=== PATIENT | male | born 1950 | race Caucasian/White ===

== ENCOUNTER 2020-05-30 15:17 | Emergency (ER) | payer MEDICARE, SELFPAY ==
--- NOTE | ~2020-05-30 | XR_ITS ---
EXAMINATION: XR wrist LT min 3V DATE: 05/30/2020 15:36 INDICATION: Left wrist hyperextension. TECHNIQUE: 4 views of left wrist were obtained. COMPARISON: None. FINDINGS: Bone alignment is normal. No fracture. There is mild osteoarthritis of triscaphe joint. IMPRESSION: 1. Mild osteoarthritis of triscaphe joint. Reviewed, dictated and finalized at location A.
[2020-05-30 15:25] VITALS: BP 135/67; PULSE 86; RESP 16; TEMP 36.9; O2SAT 97
--- NOTE | 2020-05-30 15:44 | ED.UPPEXIN ---
HPI - Extremity Injury (Upper) General Chief Complaint: Extremity Injury, Upper Stated Complaint: lt wrist pain Time Seen by Provider: 05/30/20 15:49 Source: patient and RN notes reviewed Mode of arrival: ambulatory Limitations: no limitations History of Present Illness HPI narrative: 70 year old male who presents to [facility] with complaints of hyper extending his left wrist about one week ago. Patient states that he was holding something over his head and he lost his balance and reached out with the right hand to steady self then hyper extended his left wrist. Patient has strong left radial pulse, nail beds js briskly to his left fingers, denies any tingling or numbness in fingers. MD complaint: injury to: left and wrist Onset (ago): day(s) Other Extremity Injury: Left: wrist Other injuries: none Handedness: right Place: home Severity: mild Severity scale (1-10): 3 Relieving factors: rest Exacerbating factors: movement of extremity Context: other (hyper extension of left wrist) Associated symptoms: denies other symptoms Related Data Allergies Allergy/AdvReac Type Severity Reaction Status Date / Time No Known Allergies Allergy Verified 05/30/20 15:26 Review of Systems Review of Systems: Narrative: CONSTITUTIONAL: Denies fever, chills, or sweats. EYES: Denies visual changes, redness, or discharge. ENT: Denies rhinorrhea, congestion, sore throat, or otalgia. CARDIOVASCULAR: Denies chest pain, palpitations, or edema. RESPIRATORY: Denies cough or dyspnea. GASTROINTESTINAL: Denies abdominal pain, nausea, vomiting, or diarrhea. GENITOURINARY: Denies dysuria or hematuria. SKIN: Denies rash or itching. MUSCULOSKELETAL: Denies back pain, states left wrist pain, or myalgia. NEUROLOGIC: Denies headache, numbness, or weakness. PSYCHIATRIC: Denies anxiety or depression. All systems reviewed & are unremarkable except as noted in HPI and below PMFSH Past Medical History Medical History (Updated 05/31/20 @ 00:00 by Grecia Castro) Insomnia Skin cancer Surgical History Surgical History (Updated 06/02/20 @ 10:35 by Nika Watson NP) H/O arthroscopy of right knee Status post surgical removal of malignant neoplasm of skin Family History Family History Sibling Carcinoma of colon Mother Family history of Alzheimer's disease Father Family history of lymphoma Social History Social History (Updated 05/30/20 @ 16:09 by Nika Watson NP) Smoking status: Never smoker Alcohol intake: current Occupation/Education: retired Gender identity (if verbalized by the patient): Male Comments At time of signature, agree with nursing past medical, surgical, social and family history. There is no relevant family history pertinent to the presenting complaint Exam Narrative: Exam Narrative: GENERAL: Well-appearing, well-nourished, and in no acute distress. HEAD: Normocephalic, atraumatic. EYES: PERRLA and EOMI. ENT: Nares clear, no rhinorrhea or epistaxis. Mucous membranes moist. NECK: Supple. CHEST: Clear to auscultation. No respiratory distress. HEART: Regular rate and rhythm. No murmur heard. Normal peripheral pulses. ABDOMEN: Soft, nontender, nondistended, normal active bowel sounds. EXTREMITIES: Normal range of motion. No edema. Discomfort to his left wrist especially with flexion,no swelling noted, circulation, mobility and sensation intact to left wrist and hand SKIN: Warm, dry, no rash. NEURO: No focal deficits. Alert and oriented x3. Course Vital Signs Vital signs: Vital Signs Temperature 36.9 C 05/30/20 15:25 Pulse Rate 86 05/30/20 15:25 Respiratory Rate 16 05/30/20 15:25 Blood Pressure 135/67 05/30/20 15:25 Pulse Oximetry 97 05/30/20 15:25 Temperature 36.9 C 05/30/20 15:25 Pulse Rate 86 05/30/20 15:25 Respiratory Rate 16 05/30/20 15:25 Blood Pressure 135/67 05/30/20 15:25 Pulse Oximetry 97 05/30/20 15
== END 2020-05-30 16:02 | disposition home or self-care (01) ==
PROVIDERS: Emergency Provider Registered Nurse; PCP Family Medicine
DX: S63.502A Unspecified sprain of left wrist, initial encounter (principal); S66.912A Strain of unspecified muscle, fascia and tendon at wrist and hand level, left hand, initial encounter; X50.9XXA Other and unspecified overexertion or strenuous movements or postures, initial encounter; Z85.828 Personal history of other malignant neoplasm of skin; G47.00 Insomnia, unspecified
CPT/HCPCS: 73110; 99213; G0463

== ENCOUNTER 2022-02-25 11:19 | Outpatient (CLI) | payer MEDICARE, SELFPAY ==
--- NOTE | ~2022-02-25 | US_ITS ---
EXAMINATION: US thyroid DATE: 02/25/2022 12:11 INDICATION: Autoimmune thyroiditis. Hypothyroidism. TECHNIQUE: Multiple ultrasound images of the thyroid were obtained. COMPARISON: None. FINDINGS: The right thyroid lobe measures 5.5 x 2.3 x 2.1 cm. The left thyroid lobe measures 4.6 x 2.2 x 1.8 c m. The thyroid demonstrates diffusely heterogeneous hypoechogenicity. Vascularity is increased. No d iscrete nodule. IMPRESSION: 1. 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 Reviewed, dictated and finalized at location A.
== END 2022-02-25 11:20 | disposition home or self-care (01) ==
PROVIDERS: PCP Internal Medicine; Visit Provider Internal Medicine
DX: E06.3 Autoimmune thyroiditis (principal)
CPT/HCPCS: 76536

== ENCOUNTER 2023-01-26 00:32 | Day surgery (SDC) | payer MEDICARE, SELFPAY ==
[2023-01-19 15:36] VITALS: BMI 25.5
[2023-01-26 10:33] VITALS: BP 133/81; PULSE 90; RESP 18; TEMP 36.3; O2SAT 96
[2023-01-26] MEDS: LACTATED RINGERS 1,000 ML 150 ML IV CONT (10:58)
--- NOTE | 2023-01-26 11:14 | WPDANESEPPF ---
Anes - Initial Pre Proc Eval Procedure: Operation Date: 01/26/23 11:30 Proposed Procedures p Screening Colonoscopy - Thomas More MD Date/Time: 01/26/23 11:14 Surgeon: Thomas More MD Pre Op Diagnosis: neoplasm screening Patient Data Age: 72 Gender: M Height: 1.83 m Weight: 84.8 kg Last Vital Signs Temp 97.4 F L 01/26/23 10:33 Pulse 90 01/26/23 10:33 Resp 18 01/26/23 10:33 BP 133/81 01/26/23 10:33 Pulse Ox 96 01/26/23 10:33 O2 Del Method Room Air 01/26/23 10:33 Allergies Allergy/AdvReac Type Severity Reaction Status Date / Time No Known Allergies Allergy Verified 01/26/23 10:31 Home Medications Medication Instructions Recorded Confirmed Type levothyroxine 25 mcg tablet 25 mcg PO DAILY #90 tabs 11/25/22 01/19/23 Rx rosuvastatin 5 mg tablet (Crestor) 5 mg PO DAILY #90 tabs 11/25/22 01/19/23 Rx trazodone 150 mg tablet 150 mg PO .QHS #90 tabs 11/25/22 01/19/23 Rx doxycycline hyclate 100 mg capsule 100 mg PO Q12H #20 caps 01/11/23 01/19/23 Rx fluticasone propionate 50 2 spray intranasal BID #16 grams 01/11/23 01/19/23 Rx mcg/actuation nasal spray,suspension (Flonase Allergy Relief) loratadine 10 mg tablet 10 mg PO DAILY #30 tabs 01/11/23 01/19/23 Rx Patient hx anesthesia problems: none Family hx anesthesia problems: none Results Review: All pre-operative results and documents have been reviewed as part of the pre-operative evaluation. [facility] Past Medical History Medical History (Updated 01/11/23 @ 11:50 by Grayson Pinon MD) Allergic rhinitis Essential tremor History of COVID-19 Hypothyroidism Insomnia SI (sacroiliac) joint dysfunction Skin cancer Squamous cell carcinoma of left ear Surgical History Surgical History H/O arthroscopy of right knee Status post surgical removal of malignant neoplasm of skin Family History Family History Sibling Carcinoma of colon Mother Family history of Alzheimer's disease Father Family history of lymphoma Social History Social History Smoking status: Never smoker Second hand tobacco smoke exposure: No Alcohol intake: current Drinks per week: 4 Alcohol use details: WINE/BEER Substance use: never Substance use type: does not use Lack of Transportation: No Lack of Food: Never True Current Housing: I Have Housing Concerned About Future Housing: No Difficulty Paying Gas/Electric Bills: No Difficulty Paying for Meds: No Currently Unemployed: No Education: Decline to Answer Difficulty w/ Childcare or Family Care: No Living arrangements: with family Occupation/Education: retired Gender identity (if verbalized by the patient): Male Spiritual care concerns: No Anes - Eval Final PreProcedure Day of Procedure 01/26/23 11:14 Patient weight: normal Heart: regular rate and rhythm Lungs: clear to auscultation Airway: Mallampati scale class II Neurological: alert and oriented Last oral intake: >/= 8 hours ASA classification: II Emergent: no Anesthetic plan: proceed Anesthesia type and monitoring: general GIVS and standard monitoring Results Review: All pre-operative results and documents have been reviewed as part of the pre-operative evaluation. Informed Consent: The patient's anesthetic plan and its attendant risks and benefits were discussed with the patient/family/POA. Questions were solicited and answers provided to the satisfaction of the patient/family/POA.
--- NOTE | 2023-01-26 11:22 | PM.HPGS ---
History of Present Illness History of Present Illness Consent: Risks, benefits, and alternatives have been discussed and questions answered. Patient agrees to proceed with procedure. Chief complaint: neoplasm screening Narrative: Kris Nguyen is a 72 year old male with personal history of colon polyps, last colonoscopy 2018 Review of Systems Constitutional: Constitutional: Denies headache(s) and Denies weakness Eyes: Eyes: Denies blurry vision ENT: Reports Normal hearing present, Denies headache(s) and Denies neck pain Cardiovascular: Cardiovascular: Denies chest pain and Denies dyspnea Respiratory: Respiratory: Denies dyspnea Gastrointestinal: Gastrointestinal: Reports no additional gastrointestinal complaints Genitourinary: Genitourinary: Denies dysuria Musculoskeletal: Musculoskeletal: Denies neck pain Integumentary/Breasts: Skin/Breast: Denies dry skin Neurologic: Reports Normal hearing present, Denies headache(s) and Denies weakness Psychiatric: Psychiatric: Denies anxiety Endocrine: Endocrine: Denies change in body appearance Hematologic/Lymphatic: Hematologic/Lymphatic: Denies easy bleeding Allergic/Immunologic: Allergic/Immunologic: Denies urticaria PMFSH Past Medical History Medical History (Updated 01/26/23 @ 11:22 by Thomas More MD) Adenomatous colon polyp Allergic rhinitis Essential tremor History of COVID-19 Hypothyroidism Insomnia SI (sacroiliac) joint dysfunction Skin cancer Squamous cell carcinoma of left ear Surgical History Surgical History H/O arthroscopy of right knee Status post surgical removal of malignant neoplasm of skin Family History Family History Sibling Carcinoma of colon Mother Family history of Alzheimer's disease Father Family history of lymphoma Social History Social History Smoking status: Never smoker Second hand tobacco smoke exposure: No Alcohol intake: current Drinks per week: 4 Alcohol use details: WINE/BEER Substance use: never Substance use type: does not use Lack of Transportation: No Lack of Food: Never True Current Housing: I Have Housing Concerned About Future Housing: No Difficulty Paying Gas/Electric Bills: No Difficulty Paying for Meds: No Currently Unemployed: No Education: Decline to Answer Difficulty w/ Childcare or Family Care: No Living arrangements: with family Occupation/Education: retired Gender identity (if verbalized by the patient): Male Spiritual care concerns: No Meds Home Medications and Allergies Home Medications Medication Instructions Recorded Confirmed Type levothyroxine 25 mcg tablet 25 mcg PO DAILY #90 tabs 11/25/22 01/19/23 Rx rosuvastatin 5 mg tablet (Crestor) 5 mg PO DAILY #90 tabs 11/25/22 01/19/23 Rx trazodone 150 mg tablet 150 mg PO .QHS #90 tabs 11/25/22 01/19/23 Rx doxycycline hyclate 100 mg capsule 100 mg PO Q12H #20 caps 01/11/23 01/19/23 Rx fluticasone propionate 50 2 spray intranasal BID #16 grams 01/11/23 01/19/23 Rx mcg/actuation nasal spray,suspension (Flonase Allergy Relief) loratadine 10 mg tablet 10 mg PO DAILY #30 tabs 01/11/23 01/19/23 Rx Allergies Allergy/AdvReac Type Severity Reaction Status Date / Time No Known Allergies Allergy Verified 01/26/23 10:31 Vital Signs Vital Signs - 24 hr 01/26/23 10:33 Temperature 97.4 F L Pulse Rate 90 Respiratory Rate 18 Blood Pressure 133/81 Pulse Oximetry 96 Oxygen Delivery Room Air Exam Const: General: comfortable and no acute distress HENMT: Face/Nose/Sinus: Normal nares present Eyes: General: appearance normal, both eyes and all related structures Neck: Neck: no JVD Resp: Auscultation: clear to auscultation bilaterally Cardio: Rate: regular rate Rhythm: regular rhythm GI: I
[2023-01-26 11:47] VITALS: BP 83/44; PULSE 85; RESP 26; O2SAT 95
[2023-01-26 11:57] VITALS: BP 92/52; PULSE 75; RESP 15; O2SAT 96
[2023-01-26 12:07] VITALS: BP 95/63; PULSE 84; RESP 15; O2SAT 98
== END 2023-01-26 12:16 | disposition home or self-care (01) ==
PROVIDERS: PCP Internal Medicine; Visit Provider Internal Medicine Gastroenterology
PROC: 0DJD8ZZ Inspection of Lower Intestinal Tract, Via Natural or Artificial Opening Endoscopic (ICD-10-PCS; CPT 45378; principal; 2023-01-26 11:30)
DX: Z12.11 Encounter for screening for malignant neoplasm of colon (principal); D12.0 Benign neoplasm of cecum; K57.30 Diverticulosis of large intestine without perforation or abscess without bleeding; K64.8 Other hemorrhoids; E03.9 Hypothyroidism, unspecified
CPT/HCPCS: 45385; 88305; J2704; J7120

== ENCOUNTER → 2023-10-05 15:59 | Outpatient (CLI) | payer MEDICARE, SELFPAY ==
--- NOTE | ~2023-10-05 | MR_ITS ---
EXAMINATION: MR lumbar spine wo con DATE: 10/05/2023 16:48 INDICATION: Low back pain TECHNIQUE: Magnetic resonance imaging (MRI) of the lumbar spine was performed without intravenous con trast. Sequences included sagittal T2-weighted FSE, sagittal T2-weighted FS FSE, sagittal T1-weighted FSE, and axial T2-weighted FSE. COMPARISON: None FINDINGS: 12 degrees mid to upper lumbar dextrocurvature. Sagittal alignment is normal. Vertebral body heights are normal. There several scattered T1 hyperintense hemangiomas in the lumbar and lower thoracic spin e. Severe right-sided predominant disc height loss at L4-L5 with associated sclerotic Modic type III and T2 hyperintense fibrovascular degenerative endplate changes. Marrow signal is otherwise normal. M ild disc height loss at T11-T12 through L3-4 sparing L2-L3. The conus medullaris terminates at L1. Th ere is normal signal in the caudal spinal cord. Paravertebral soft tissues are unremarkable. The foll owing disc levels are specifically discussed: T12-L1: The disc does not extend beyond the endplate margin. There is mild right and moderate left fa cet joint osteoarthritis. There is no neural foraminal stenosis. There is no central canal stenosis. L1-L2: The disc does not extend beyond the endplate margin. Annular fissure at the right posterior as pects the disc. There is mild bilateral facet joint osteoarthritis. There is minimal bilateral neural foraminal stenosis. There is no central canal stenosis. L2-L3: Mild bilateral foraminal zone disc protrusions. There is mild bilateral facet joint osteoarthr itis. There is mild bilateral neural foraminal stenosis. There is no central canal stenosis. L3-L4: Disc is bulging with annular fissure and small left subarticular zone disc protrusion. There i s mild bilateral facet joint osteoarthritis. There is mild left and mild to moderate right neural for aminal stenosis. There is mild central canal stenosis. L4-L5: Disc is bulging. There is moderate left and severe right facet joint osteoarthritis. There is moderate bilateral, right greater than left neural foraminal stenosis. There is mild central canal st enosis along with mild narrowing of the left and right lateral recesses. L5-S1: Small central disc protrusion. There is severe bilateral facet joint osteoarthritis. There is mild right and moderate left neural foraminal stenosis. There is no central canal stenosis. IMPRESSION: 1. Moderate to severe lower lumbar spondylosis. Reviewed, dictated and finalized at location A. PROTECTOR
== END ==
PROVIDERS: PCP Family Medicine; Visit Provider Nurse Practitioner Family
DX: M47.896 Other spondylosis, lumbar region (principal)
CPT/HCPCS: 72148

== ENCOUNTER 2024-03-13 09:56 | Day surgery (SDC) | payer MEDICARE, SELFPAY ==
[2024-03-08 11:05] VITALS: BMI 25.7
--- NOTE | ~2024-03-13 | XR_ITS ---
XR fluoroscopy no charge Indication: Bilateral L3, L4 and L5 medial branch nerve block TECHNIQUE: Fluoroscopy used during Bilateral L3, L4 and L5 medial branch nerve block performed by Dr Carmichael [Sidney Alvarado MD] on 03/13/2024. 16 seconds of fluoroscopy with 10 fluoroscopic images captured. FINDINGS: Correlate with procedure note. IMPRESSION: Fluoroscopy used during Bilateral L3, L4 and L5 medial branch nerve block. Reviewed, dictated and finalized at location B.
--- NOTE | 2024-03-13 10:41 | WPDHPUPDATE1 ---
History and Physical Update Update Date/Time: 03/13/24 10:41 History and Physical has been reviewed, including an updated exam of the patient. There are NO changes in the patient's condition. Risks, benefits, and alternatives have been discussed and questions answered. Patient agrees to proceed with procedure.
--- NOTE | 2024-03-13 10:42 | W.PM.PROC2 ---
Procedure Note - Detailed Date of Procedure 03/13/24 Pre-op Diagnosis Lumbosacral Spondylosis , Chronic Low Back Pain Post-op Diagnosis Same Procedure Performed Diagnostic bilateral Lumbar Medial Branch/Dorsal Ramus Blocks at L3, L4, L5 Treating the Ipsilateral L4-5, L5-S1 Facet Joints Under Fluoroscopic Guidance and with Contrast Control. ( 4 levels blocked). Surgeon Sidney Alvarado MD Anesthesia Local Description of Procedure INFORMED CONSENT: Risks, benefits and alternatives to the procedure were discussed in detail with the patient who expressed explicit understanding and consent to proceed. Patient was informed verbally and in written form regarding the risks associated with the procedure including the low risk of serious infection, bleeding/bruising, allergic reaction, nerve or organ injury, paralysis, procedural site pain or discomfort, worsening pain and/or mobility, failure to treat and/or disfigurement. The patient expressed explicit understanding and consent to proceed. All materials required for the procedure were available prior to procedure start. Site and side were marked prior to procedure and confirmed in the presence of the patient. PROCEDURE IN DETAIL: The patient was brought to the procedural suite and placed in the prone position. Patient was made comfortable with use of pillows under the head/chest, hips and ankles. Skin overlying the injection site on the affected side(s) was prepared broadly with ChloraPrep applicator and draped in a sterile manner. Aseptic technique was used throughout. The endplates of the vertebral bodies at the site(s) of interest were aligned in the AP view. Ipsilateral oblique angulation was utilized to optimize visualization of the intersection between the superior articulating process and transverse process at each target site. Local anesthesia was established by infiltration with approximately 5 mL of 1% lidocaine via a 1-1/2 inch 27-gauge needle. A 25-gauge 3.5 inch Quincke spinal needle was advanced until the needle tip contacted periosteum at the target site, right L3. Lateral view was utilized to confirm the appropriate placement of the needle tip just anterior to the facet line and superior to the pedicle. In the Lateral view, 0.25 mL of Omnipaque 300 contrast medium was injected after negative aspiration for CSF, blood or other bodily fluid, showing appropriate extra-articular spread of contrast without evidence of intravascular, foraminal or intrathecal placement. A 0.5 mL solution of 0.5% PF bupivacaine was injected after negative repeat aspiration. Appropriate spread of the injectate was confirmed with washout of previously injected contrast. No parasthesias were elicited. Needle was removed completely intact without difficulty. The same exact procedure was repeated for all remaining levels on the ipsilateral side, right L4, L5 medial branches/dorsal ramus, modified as necessary to accommodate for the new target location with identical findings and results and no evidence of complication. The same exact procedure was repeated for all remaining levels on the contralateral side, left L3, L4, L5 medial branches/dorsal ramus, modified as necessary to accommodate for the new target location with identical findings and results and no evidence of complication. Images were saved and documented in the patient chart. Patient's skin was cleaned and sterile bandage applied. The patient tolerated the procedure well. The patient was transported to the recovery area in stable condition where they were observed for an appropriate amount of time prior to discharge, without evidence of complication. Patient was instructed on the appropriate completion of a pain diary over the next 12-24 hours. The patient was instructed to avoid excessive activity for the next 48 hours, including climbing and frequent use of stairs. Showers only for 48 hours. They were instructed not to drive or operate heavy machinery for 24 hours. T
[2024-03-13 11:01] VITALS: BP 134/84; PULSE 74; RESP 14; TEMP 36.8; O2SAT 96
[2024-03-13 11:16] VITALS: BP 140/77; PULSE 70; RESP 13; O2SAT 95
[2024-03-13 11:25] VITALS: BP 142/79; PULSE 70; RESP 13; O2SAT 96
[2024-03-13] MEDS: LIDOCAINE HCL 1% PF INJ 5 ML VIAL XX (11:28)
[2024-03-13] MEDS: BUPivacaine HCL 0.5% 10 ML AMP INFILTRATE (11:29)
[2024-03-13 11:30] VITALS: BP 138/76; PULSE 75; RESP 18; O2SAT 99
== END 2024-03-13 11:42 | disposition home or self-care (01) ==
PROVIDERS: PCP Family Medicine; Visit Provider Anesthesiology Pain Medicine
PROC: (CPT 64493; principal; 2024-03-13 11:45)
DX: M47.817 Spondylosis without myelopathy or radiculopathy, lumbosacral region (principal); M54.59 Other low back pain
CPT/HCPCS: 64493; 64494; 99199

== ENCOUNTER 2024-04-24 08:33 | Day surgery (SDC) | payer MEDICARE, SELFPAY ==
[2024-04-16 11:45] VITALS: BMI 25.7
--- NOTE | ~2024-04-24 | XR_ITS ---
XR fluoroscopy no charge Indication: Bilateral L3, L4 and L5 nerve block TECHNIQUE: Fluoroscopy used during Bilateral L3, L4 and L5 nerve block performed by [Sidney Alvarado MD] on 04/24/2024. 23 seconds of fluoroscopy with 10 fluoroscopic images captured. FINDINGS: Correlate with procedure note. IMPRESSION: Fluoroscopy used during Bilateral L3, L4 and L5 nerve block. Reviewed, dictated and finalized at location B.
[2024-04-24 09:18] VITALS: BP 147/82; PULSE 65; RESP 14; TEMP 36.6; O2SAT 98
--- NOTE | 2024-04-24 10:11 | WPDHPUPDATE1 ---
History and Physical Update Update Date/Time: 04/24/24 10:11 History and Physical has been reviewed, including an updated exam of the patient. There are NO changes in the patient's condition. Risks, benefits, and alternatives have been discussed and questions answered. Patient agrees to proceed with procedure.
--- NOTE | 2024-04-24 10:12 | W.PM.PROC2 ---
Procedure Note - Detailed Date of Procedure 04/24/24 Pre-op Diagnosis Lumbosacral Spondylosis, Chronic low back pain Post-op Diagnosis Same Procedure Performed Diagnostic bilateral Lumbar Medial Branch/Dorsal Ramus Blocks at L3, L4, L5 Treating the Ipsilateral L4-5, L5-S1 Facet Joints Under Fluoroscopic Guidance and with Contrast Control. ( 4 levels blocked). Surgeon Sidney Alvarado MD Anesthesia Local Description of Procedure INFORMED CONSENT: Risks, benefits and alternatives to the procedure were discussed in detail with the patient who expressed explicit understanding and consent to proceed. Patient was informed verbally and in written form regarding the risks associated with the procedure including the low risk of serious infection, bleeding/bruising, allergic reaction, nerve or organ injury, paralysis, procedural site pain or discomfort, worsening pain and/or mobility, failure to treat and/or disfigurement. The patient expressed explicit understanding and consent to proceed. All materials required for the procedure were available prior to procedure start. Site and side were marked prior to procedure and confirmed in the presence of the patient. PROCEDURE IN DETAIL: The patient was brought to the procedural suite and placed in the prone position. Patient was made comfortable with use of pillows under the head/chest, hips and ankles. Skin overlying the injection site on the affected side(s) was prepared broadly with ChloraPrep applicator and draped in a sterile manner. Aseptic technique was used throughout. The endplates of the vertebral bodies at the site(s) of interest were aligned in the AP view. Ipsilateral oblique angulation was utilized to optimize visualization of the intersection between the superior articulating process and transverse process at each target site. Local anesthesia was established by infiltration with approximately 5 mL of 1% lidocaine via a 1-1/2 inch 27-gauge needle. A 25-gauge 3.5 inch Quincke spinal needle was advanced until the needle tip contacted periosteum at the target site, right L3. Lateral view was utilized to confirm the appropriate placement of the needle tip just anterior to the facet line and superior to the pedicle. In the Lateral view, 0.25 mL of Omnipaque 300 contrast medium was injected after negative aspiration for CSF, blood or other bodily fluid, showing appropriate extra-articular spread of contrast without evidence of intravascular, foraminal or intrathecal placement. A 0.5 mL solution of 2.0% PF lidocaine was injected after negative repeat aspiration. Appropriate spread of the injectate was confirmed with washout of previously injected contrast. No parasthesias were elicited. Needle was removed completely intact without difficulty. The same exact procedure was repeated for all remaining levels on the ipsilateral side, right L4, L5 medial branches/dorsal ramus, modified as necessary to accommodate for the new target location with identical findings and results and no evidence of complication. The same exact procedure was repeated for all remaining levels on the contralateral side, left L3, L4, L5 medial branches/dorsal ramus, modified as necessary to accommodate for the new target location with identical findings and results and no evidence of complication. Images were saved and documented in the patient chart. Patient's skin was cleaned and sterile bandage applied. The patient tolerated the procedure well. The patient was transported to the recovery area in stable condition where they were observed for an appropriate amount of time prior to discharge, without evidence of complication. Patient was instructed on the appropriate completion of a pain diary over the next 12-24 hours. The patient was instructed to avoid excessive activity for the next 48 hours, including climbing and frequent use of stairs. Showers only for 48 hours. They were instructed not to drive or operate heavy machinery for 24 hours. They
[2024-04-24 10:26] VITALS: BP 144/79; PULSE 66; RESP 14; O2SAT 98
[2024-04-24 10:31] VITALS: BP 144/95; PULSE 67; RESP 11; O2SAT 98
[2024-04-24 10:36] VITALS: BP 143/93; PULSE 68; RESP 11; O2SAT 99
[2024-04-24] MEDS: LIDOCAINE HCL 1% PF INJ 5 ML VIAL AFFCTD EYE (10:37)
[2024-04-24] MEDS: LIDOCAINE HCL 2% PF INJ 5 ML VIAL INFILTRATE (10:38)
[2024-04-24 10:44] VITALS: BP 147/82; PULSE 59; RESP 18; O2SAT 94
== END 2024-04-24 10:58 | disposition home or self-care (01) ==
PROVIDERS: PCP Family Medicine; Visit Provider Anesthesiology Pain Medicine
PROC: (CPT 64493; principal; 2024-04-24 09:30)
DX: M47.817 Spondylosis without myelopathy or radiculopathy, lumbosacral region (principal); M54.59 Other low back pain
CPT/HCPCS: 64493; 64494; 99199

== ENCOUNTER 2024-08-06 01:50 | Day surgery (SDC) | payer MEDICARE, SELFPAY ==
[2024-07-30 11:12] VITALS: BMI 25.8
--- NOTE | 2024-07-30 11:17 | PC.NURSE ---
Report to the Outpatient Waiting Room, entrance under the green pavilion located off [facility], at time _0930_ on date _[id number]_. Planned Procedure Time: _1130_.? Time changes happen often and if your time is changed the preop area will call you the afternoon before. - You and your visitor will be asked to self-screen and do not enter if you have any COVID symptoms. Please call surgeon if you need to reschedule. - A mask is optional within the hospital at this time. Nothing to eat or drink after midnight until after surgery. Take only the following medications with a SIP of water on the morning of surgery: ____Levothyroxine and Flonase DO NOT STOP ANY OF YOUR OTHER PRESCRIPTION MEDICATIONS PRIOR TO SURGERY EXCEPT THE FOLLOWING Medications to discontinue per physician None Please no make-up, nail burmese, hairspray, perfume, deodorant, or body powder the day of surgery.? No jewelry (including any body piercings) or valuables the day of surgery, leave them at home.? Please take a shower or bath the night before, or the morning of, surgery with an antibacterial soap.? Wear comfortable, loose fitting clothing.? - Jewelry must be removed prior to entering the operating room.? Rings and piercings that are not removed may be cut off. - The hospital will not accept responsibility for valuables.? - Please leave all valuables, including medications, at home the day of surgery. If you are going home after surgery, a licensed armored car driver must drive you home.? - NO public transportation without another adult if you receive anesthesia. - We recommend that an adult stay with you for 24 hours following discharge. - We also recommend that you do not drive, make important decision, drink alcoholic beverages, or take any drugs that were not prescribed by your health care provider for at least 24 hours after your discharge time. Follow any additional instructions given to you from your surgeon. Telephone instructions given to _Kris_and asked if any additional questions and then verbalized understanding. Patient advised to call surgeon office or pre surgery nurse liaison [phone] if any additional questions.
--- NOTE | ~2024-08-06 | XR_ITS ---
EXAMINATION: XR fluoroscopy no charge DATE: 08/06/2024 10:24 INDICATION: Bilateral L3, L4 and L5 medial branch/dorsal rami radiofrequency ablation. TECHNIQUE: 6 fluoroscopic images of the lower lumbar spine were obtained during procedure performed nancy Alvarado. Radiologist was not present for the imaging or procedure. The amount of fluoroscopy time used during this procedure was 0.8 minutes. Total DAP was 6.48 Gycm^2 COMPARISON: None. FINDINGS/IMPRESSION: Images demonstrate needle tips along side the posterior superior margin of the junction of the transv erse processes and pedicles bilaterally at L4, L5 and S1. See procedure note for further detail. Reviewed, dictated and finalized at location A.
--- NOTE | 2024-08-06 06:12 | P.HP_ITS ---
Surgical History Surgical History H/O arthroscopy of right knee Status post surgical removal of malignant neoplasm of skin Family History Family History Sibling Carcinoma of colon Mother Family history of Alzheimer's disease Father Family history of lymphoma Social History Social History Smoking status: Never smoker Second hand tobacco smoke exposure: Yes Alcohol intake: current Drinks per week: 4 Alcohol use details: WINE/BEER Substance use: never Substance use type: does not use Do You Feel Safe in your Home?: Yes Lack of Transportation: No Lack of Food: Never True Current Housing: I Have Housing Concerned About Future Housing: No Difficulty Paying Gas/Electric Bills: No Difficulty Paying for Meds: No Currently Unemployed: No Education: Decline to Answer Difficulty w/ Childcare or Family Care: No Living arrangements: with family Occupation/Education: retired Gender identity (if verbalized by the patient): Male Spiritual care concerns: No Meds Home Medications and Allergies Home Medications Medication Instructions Recorded Confirmed Type fluticasone propionate 50 2 spray intranasal BID #16 grams 11/10/23 07/30/24 Rx mcg/actuation nasal spray,suspension (Flonase Allergy Relief) levothyroxine 75 mcg tablet 75 mcg PO DAILY #90 tabs 03/12/24 07/30/24 Rx (Synthroid) ALLERGY RELIEF (PRANEETH) 10MG TAB 1 tablet PO DAILY 04/16/24 07/30/24 History trazodone 150 mg tablet See Rx Instructions .Route 05/14/24 07/30/24 Rx .COMPLEX #90 tabs rosuvastatin 5 mg tablet See Rx Instructions .Route 07/02/24 07/30/24 Rx .COMPLEX #90 tabs ketoconazole 2 % shampoo See Rx Instructions .Route 07/31/24 Rx .COMPLEX #120 mL meloxicam 15 mg tablet See Rx Instructions .Route 07/31/24 Rx .COMPLEX #30 tabs Allergies Allergy/AdvReac Type Severity Reaction Status Date / Time No Known Allergies Allergy Verified 07/30/24 11:10 Exam Narrative: The patient's physical exam is essentially unchanged from prior examination on 04/30/2024. Specifically, patient demonstrates normal lung capacity, tidal volume and respiratory rate without wheezes, crackles, rales or rubs. Heart rate and rhythm are regular without murmurs, gallops or rubs. No JVD. Pulses 2+ globally without increasing peripheral edema. AAOx3, NC/AT without acute distress or altered consciousness. Speech, cognition, mood and judgment at baseline and within normal limits. Const: General: cooperative, no acute distress, alert, awake and Physically active Orientation/consciousness: patient oriented x3 Psych: Thought content: Yes Normal thought content present Insight: Good insight present (Psych) Judgement: Good judgement present (Psych) Assessment and Plan Assessment and plan (1) Lumbosacral spondylosis: Code(s): M47.817 - Spondylosis without myelopathy or radiculopathy, lumbosacral region Status: Acute (2) Dorsalgia: Code(s): M54.9 - Dorsalgia, unspecified Status: Acute (3) Chronic pain: Code(s): G89.29 - Other chronic pain Status: Acute Plan proceed as briana
--- NOTE | 2024-08-06 06:12 | PM.HPGS ---
History of Present Illness History of Present Illness Consent: Risks, benefits, and alternatives have been discussed and questions answered. Patient agrees to proceed with procedure. Chief complaint: lumbosacral spondylosis, chronic low back pain Narrative: Kris Nguyen is a 74 year old male with chronic, recalcitrant and disabling bilateral lumbosacral back pain secondary to degenerative spondylosis with failure to respond to aggressive conservative measures including PT, oral and topical analgesics, opioid and nonopioid analgesics, rest, time and activity/behavioral modification over the past 1-2 years who presents for thermal radiofrequency ablation of the bilateral L3, L4, L5 medial branches / dorsal rami to address the bilateral L4-5, L5-S1 facet joints ( 4 levels total) under fluoroscopic guidance. Review of Systems Review of Systems: Patient denies any new infectious, allergic, cardiopulmonary, neurologic or constitutional symptoms or changes in activity tolerance or exercise capacity including new or progressive SOB/[place], peripheral edema, productive cough, dysuria, nausea/vomiting, diarrhea, weight change, fevers/chills/night sweats, new or progressive neurologic deficit, cognitive or mood changes since last seen, except as documented in the HPI. All systems reviewed & are unremarkable except as noted in HPI and below PMFSH Past Medical History Medical History Adenomatous colon polyp Allergic rhinitis Essential tremor History of COVID-19 Hypothyroidism Insomnia Lumbar spine pain Right hip pain SI (sacroiliac) joint dysfunction Skin cancer Squamous cell carcinoma of left ear Surgical History Surgical History H/O arthroscopy of right knee Status post surgical removal of malignant neoplasm of skin Family History Family History Sibling Carcinoma of colon Mother Family history of Alzheimer's disease Father Family history of lymphoma Social History Social History Smoking status: Never smoker Second hand tobacco smoke exposure: Yes Alcohol intake: current Drinks per week: 4 Alcohol use details: WINE/BEER Substance use: never Substance use type: does not use Do You Feel Safe in your Home?: Yes Lack of Transportation: No Lack of Food: Never True Current Housing: I Have Housing Concerned About Future Housing: No Difficulty Paying Gas/Electric Bills: No Difficulty Paying for Meds: No Currently Unemployed: No Education: Decline to Answer Difficulty w/ Childcare or Family Care: No Living arrangements: with family Occupation/Education: retired Gender identity (if verbalized by the patient): Male Spiritual care concerns: No Meds Home Medications and Allergies Home Medications Medication Instructions Recorded Confirmed Type fluticasone propionate 50 2 spray intranasal BID #16 grams 11/10/23 07/30/24 Rx mcg/actuation nasal spray,suspension (Flonase Allergy Relief) levothyroxine 75 mcg tablet 75 mcg PO DAILY #90 tabs 03/12/24 07/30/24 Rx (Synthroid) ALLERGY RELIEF (PRANEETH) 10MG TAB 1 tablet PO DAILY 04/16/24 07/30/24 History trazodone 150 mg tablet See Rx Instructions .Route 05/14/24 07/30/24 Rx .COMPLEX #90 tabs rosuvastatin 5 mg tablet See Rx Instructions .Route 07/02/24 07/30/24 Rx .COMPLEX #90 tabs ketoconazole 2 % shampoo See Rx Instructions .Route 07/31/24 Rx .COMPLEX #120 mL meloxicam 15 mg tablet See Rx Instructions .Route 07/31/24 Rx .COMPLEX #30 tabs Allergies Allergy/AdvReac Type Severity Reaction Status Date / Time No Known Allergies Allergy Verified 07/30/24 11:10 Exam Narrative: The patient's physical exam is essentially unchanged from prior examination on 04/30/2024. Specifically, ephraim
--- NOTE | 2024-08-06 06:15 | WPDHPUPDATE1 ---
History and Physical Update Update Date/Time: 08/06/24 06:15 History and Physical has been reviewed, including an updated exam of the patient. There are NO changes in the patient's condition. Risks, benefits, and alternatives have been discussed and questions answered. Patient agrees to proceed with procedure.
--- NOTE | 2024-08-06 06:16 | W.PM.PROC2 ---
Procedure Note - Detailed Date of Procedure 08/06/24 Pre-op Diagnosis lumbosacral spondylosis, chronic low back pain Post-op Diagnosis Same Procedure Performed Thermal Radiofrequency Ablation of the bilateral Lumbar Medial Branches/Dorsal Ramus at the L3, L4, L5 Levels Treating the bilateral L4-5, L5-S1 Facet Joints Under Fluoroscopic Guidance ( 4 Levels Treated). Surgeon Sidney Alvarado MD Mobile Phlebotomist None. Anesthesia Local (w/ MAC) Description of Procedure INFORMED CONSENT: Risks, benefits and alternatives to the procedure were discussed in detail with the patient who expressed explicit understanding and consent to proceed. Patient was informed verbally and in written form regarding the risks associated with the procedure including the low risk of serious infection, bleeding/bruising, allergic reaction, nerve or organ injury, paralysis, procedural site pain or discomfort, worsening pain and/or mobility, failure to treat and/or disfigurement. The patient expressed explicit understanding and consent to proceed. All materials required for the procedure were available prior to procedure start. Site and side were marked prior to procedure and confirmed in the presence of the patient. PROCEDURE IN DETAIL: The patient was brought to the procedural suite and placed in the prone position. Patient was made comfortable with use of pillows under the head/chest, hips and ankles. ASA standard monitors were applied and used throughout the procedure. Skin overlying the injection site on the affected side(s) was prepared broadly with ChloraPrep applicator and draped in a sterile manner. Aseptic technique was used throughout. The endplates of the vertebral bodies at the site(s) of interest were aligned in the AP view. Ipsilateral oblique angulation was utilized to optimize visualization of the intersection between the superior articulating process and transverse process at each target site. Local anesthesia was established by infiltration with approximately 5 mL of 1% lidocaine via a 1-1/2 inch 27-gauge needle divided over each site treated. A 16-gauge 100mm [employer] RF needle with curved 10mm active tip was advanced in the AP view until the needle tip contacted the periosteum at the target site, the right L3 medial branch. Lateral view was utilized to adjust and confirm the appropriate placement of the needle tip just anterior to the facet line, superior to the pedicle and posterior to the foramen. Grounding electrode was in place and functioning. The appropriately-sized RF cannula was inserted into the RF needle and motor stimulation was performed with no subjective or objective evidence of recruited muscle activity with stimulation up to 2.0 volts at a frequency of 2Hz. 1.5 mL of 2.0% PF lidocaine was injected after negative aspiration. After a 90s pause, lesioning was performed to 90 degrees centigrade for 90s ensuring lack of symptoms in the extremity throughout. Needle was rotated 180 degrees and lesioning repeated in a similar manner. Patient tolerated this well. No parasthesias were elicited. Needle was removed completely intact without difficulty. The same procedure was repeated for all intended levels/ structures on the ipsilateral side, right L4, L5 medial branch/dorsal ramus with identical methodology, modified to compensate for new location, with similar results and no evidence of complication. The same exact procedure was repeated for all remaining levels on the contralateral side, left L3, L4, L5 medial branches/dorsal ramus, modified as necessary to accommodate for the new target location with identical findings/results and no evidence of complication. Images were saved and documented in the patient chart. Patient's skin was cleansed and sterile bandage applied. The patient tolerated the procedure well. The patient was transported to the recovery area in stable condition where they were observed for an appropriate amount of time prior to discharge, withou
--- NOTE | 2024-08-06 09:28 | WPDANESEPPF ---
Anes - Initial Pre Proc Eval Procedure: Operation Date: 08/06/24 10:30 Proposed Procedures p Thermal Radiofrequency Ablation of Bilateral L3, L4, L5 Medial Branch / Dorsal Rami addressing Bilateral L4-5, L5-S1 Facet Joints under Fluoroscopic Guidance with Contrast Control - Sidney Alvarado MD Date/Time: 08/06/24 09:28 Surgeon: Sidney Alvarado MD Pre Op Diagnosis: lumbosacral spondylosis, chronic low back pain Patient Data Age: 74 Gender: M Height: 1.83 m Weight: 86.4 kg Allergies Allergy/AdvReac Type Severity Reaction Status Date / Time No Known Allergies Allergy Verified 07/30/24 11:10 Home Medications Medication Instructions Recorded Confirmed Type fluticasone propionate 50 2 spray intranasal BID #16 grams 11/10/23 07/30/24 Rx mcg/actuation nasal spray,suspension (Flonase Allergy Relief) levothyroxine 75 mcg tablet 75 mcg PO DAILY #90 tabs 03/12/24 07/30/24 Rx (Synthroid) ALLERGY RELIEF (PRANEETH) 10MG TAB 1 tablet PO DAILY 04/16/24 07/30/24 History trazodone 150 mg tablet See Rx Instructions .Route 05/14/24 07/30/24 Rx .COMPLEX #90 tabs rosuvastatin 5 mg tablet See Rx Instructions .Route 07/02/24 07/30/24 Rx .COMPLEX #90 tabs ketoconazole 2 % shampoo See Rx Instructions .Route 07/31/24 Rx .COMPLEX #120 mL meloxicam 15 mg tablet See Rx Instructions .Route 07/31/24 Rx .COMPLEX #30 tabs Patient hx anesthesia problems: none Family hx anesthesia problems: none Results Review: All pre-operative results and documents have been reviewed as part of the pre-operative evaluation. [facility] Past Medical History Medical History Adenomatous colon polyp Allergic rhinitis Essential tremor History of COVID-19 Hypothyroidism Insomnia Lumbar spine pain Right hip pain SI (sacroiliac) joint dysfunction Skin cancer Squamous cell carcinoma of left ear Surgical History Surgical History H/O arthroscopy of right knee Status post surgical removal of malignant neoplasm of skin Family History Family History Sibling Carcinoma of colon Mother Family history of Alzheimer's disease Father Family history of lymphoma Social History Social History Smoking status: Never smoker Second hand tobacco smoke exposure: Yes Alcohol intake: current Drinks per week: 4 Alcohol use details: WINE/BEER Substance use: never Substance use type: does not use Do You Feel Safe in your Home?: Yes Lack of Transportation: No Lack of Food: Never True Current Housing: I Have Housing Concerned About Future Housing: No Difficulty Paying Gas/Electric Bills: No Difficulty Paying for Meds: No Currently Unemployed: No Education: Decline to Answer Difficulty w/ Childcare or Family Care: No Living arrangements: with family Occupation/Education: retired Gender identity (if verbalized by the patient): Male Spiritual care concerns: No Anes - Eval Final PreProcedure Day of Procedure 08/06/24 09:28 Patient weight: normal Heart: regular rate and rhythm Lungs: clear to auscultation Airway: Mallampati scale class II Neurological: alert and oriented Last oral intake: >/= 8 hours ASA classification: III Emergent: no Anesthetic plan: proceed Anesthesia type and monitoring: general GIVS and standard monitoring Results Review: All pre-operative results and documents have been reviewed as part of the pre-operative evaluation. Informed Consent: The patient's anesthetic plan and its attendant risks and benefits were discussed with the patient/family/POA. Questions were solicited and answers provided to the satisfaction of the patient/family/POA.
[2024-08-06 09:30] VITALS: BP 143/71; PULSE 69; RESP 18; TEMP 36.9; O2SAT 98; BMI 26.7
[2024-08-06] MEDS: LIDOCAINE HCL 1% PF INJ 5 ML VIAL INFILTRATE (09:51)
[2024-08-06] MEDS: LIDOCAINE HCL 2% PF INJ 5 ML VIAL INFILTRATE (09:52)
[2024-08-06 10:15] VITALS: BP 115/59; PULSE 72; RESP 14; O2SAT 96
[2024-08-06] MEDS: LACTATED RINGERS 1,000 ML 30 ML IV CONT (10:15)
[2024-08-06 10:45] VITALS: BP 130/66; PULSE 59; RESP 20
[2024-08-06 11:15] VITALS: BP 138/74; PULSE 70; RESP 20
== END 2024-08-06 11:21 | disposition home or self-care (01) ==
PROVIDERS: PCP Family Medicine; Visit Provider Anesthesiology Pain Medicine
PROC: (CPT 64635; principal; 2024-08-06 10:30)
DX: M47.817 Spondylosis without myelopathy or radiculopathy, lumbosacral region (principal); E03.9 Hypothyroidism, unspecified; G47.00 Insomnia, unspecified; G25.0 Essential tremor; M46.1 Sacroiliitis, not elsewhere classified; G89.29 Other chronic pain; Z98.890 Other specified postprocedural states; Z86.010 Personal history of colon polyps; Z85.828 Personal history of other malignant neoplasm of skin; Z80.0 Family history of malignant neoplasm of digestive organs; Z80.7 Family history of other malignant neoplasms of lymphoid, hematopoietic and related tissues
CPT/HCPCS: 64635; 64636 ×3; 99199; J1100; J2250; J2405; J2704; J3010; J7120; Q9965

== ENCOUNTER 2025-03-05 03:19 | Day surgery (SDC) | payer MEDICARE, SELFPAY ==
[2025-02-22 09:42] VITALS: BMI 25.7
--- NOTE | 2025-02-22 09:51 | PC.NURSE ---
Addendum entered by Laila Epperson RN 02/22/25 09:57: PT is aware that he is to not take meloxicam for 7 days along w other NSAIDS listed below JRRN Original Note: Report to the Outpatient Waiting Room, entrance under the green pavilion located off [facility], at time __1030am on date _03/05/25 . Planned Procedure Time: __1230pm .? Time changes happen often and if your time is changed the preop area will call you the afternoon before. - You and your visitor will be asked to self-screen and do not enter if you have any COVID symptoms. Please call surgeon if you need to reschedule. - A mask is optional within the hospital at this time. Patients may have - No food or drink from midnight until time of surgery and no smoking, or chewing tobacco (or any form of nicotine). No chewing gum, candy or mints. Take only the following medications with a SIP of water on the morning of surgery: __Levothyroxine DO NOT STOP ANY OF YOUR OTHER PRESCRIPTION MEDICATIONS PRIOR TO SURGERY EXCEPT THE FOLLOWING Hold all vitamins and supplements for 3 days per anesthesiologist.Date to take last dose is 03/01/25 Medications to discontinue per physician Aspirin,NSAIDS, Aleve, Motrin 7 days prior Date to take last dose___02/24/25 Please no make-up, nail urdu, hairspray, perfume, deodorant, or body powder the day of surgery.? No jewelry (including any body piercings) or valuables the day of surgery, leave them at home.? Please take a shower or bath the night before, or the morning of, surgery with an antibacterial soap.? Wear comfortable, loose fitting clothing.? - Jewelry must be removed prior to entering the operating room.? Rings and piercings that are not removed may be cut off. - The hospital will not accept responsibility for valuables.? - Please leave all valuables, including medications, at home the day of surgery. If you are going home after surgery, a licensed street flusher driver must drive you home.? - NO public transportation without another adult if you receive anesthesia. - We recommend that an adult stay with you for 24 hours following discharge. - We also recommend that you do not drive, make important decision, drink alcoholic beverages, or take any drugs that were not prescribed by your health care provider for at least 24 hours after your discharge time. Follow any additional instructions given to you from your surgeon.PT is aware he cannot drive for 24 hours and needs a ride to and from here. Telephone instructions given to ___Patient and asked if any additional questions and then verbalized understanding. Patient advised to call surgeon office or pre surgery nurse liaison [phone] if any additional questions.
--- NOTE | ~2025-03-05 | XR_ITS ---
INTRAOPERATIVE FLUOROSCOPY: CLINICAL HISTORY: 75 years old Male; LUMBAR ABLATION PROCEDURE COMMENTS: Limited intraoperative fluoroscopy of the lumbar spine was performed. CUMULATIVE DOSE: 24 mGy FLUOROSCOPY TIME: 76 seconds FINDINGS/IMPRESSION: Please refer to operative note for further details. Reviewed, dictated and finalized at location A.
--- OUTSIDE RECORDS SUMMARY | 2025-03-05 03:22 | XMS_ITS | Encounter Summary ---
Author Organization [facility] Address [address] [place] [address] Care Team Providers Care Conversion Man Name Role Phone Eusebio Bello MD Primary Care Provider [phone] Encounter Details Date Type Department Care Team (Late st Contact Info) Description 01/31/2025 Lab Requisition [facility] - DermPath Lab [address] 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 Gender Identity Not on file Sexual Orientation Not on file documented as of this encounter Plan of Treatment Not on file documented as of this encounter Procedures Procedure Name Priority Date/Time Associated Diagnosis Comments DERMATOPATHOLOGY Routine 01/31/2025 8:54 AM CDT documented in this encounter Results * DERMATOPATHOLOGY (01/31/2025 8:54 AM CDT) Case Report Dermatopathology Report Case: [id number] Authorizing Provider: Jaci Oakley DO Collected: 01/31/2025 08:54 AM Ordering Location: [facility] - Received: 02/04/2025 06:38 AM DermPath Lab Pathologist: Sarah Simpson MD Specimens: A) - Skin, right glabella B) - Skin, right ant lower extrem 5:39 PM T DERMATOPATHOLOGY LABORATORY Final Diagnosis Specimen A. SKIN, right glabella: BASAL CELL CARCINOMA, NODULAR TYPE (C44.319) Specimen B. SKIN, right ant lower extrem: BASAL CELL CARCINOMA, NODULAR TYPE (C44.712) 5:39 PM T DERMATOPATHOLOGY LABORATORY Clinical History A: R/O BCC B: R/O NMSC 5:39 PM T DERMATOPATHOLOGY LABORATORY Gross Description Specimen A: Received is one formalin filled container labeled with the patient's name and designated right glabella. The specimen consists of a shave biopsy measuring 7x5x1 mm. Jar 0. Specimen B: Received is one formalin filled container labeled with the patient's name and designated right ant lower extrem. The specimen consists of a shave biopsy measuring 7x5x1 mm. Jar 0. 5:39 PM T DERMATOPATHOLOGY LABORATORY Microscopic Description Specimen A. SKIN, right glabella: Within the dermis there are aggregates of basaloid cells with a high nuclear to cytoplasmic ratio and peripheral palisading. Specimen B. SKIN, right ant lower extrem: Within the dermis there are aggregates of basaloid cells with a high nuclear to cytoplasmic ratio and peripheral palisading. 5:39 PM T DERMATOPATHOLOGY LABORATORY Disclaimer An external and internal positive and negative controls are appropriate for the histochemical, immunohistochemical and immunofluorescence stain(s) in this case (if any), except where stated explicitly. The performance characteristics of the stain(s) cited in this report were developed and its performance characteristic determined by the Dermatopathology Laboratory at [facility], directed by Dr. Brody Vargas. These tests need not be, and therefore are not, approved by the [place] Food and Drug Administration. The tests are used for clinical purposes. Billing Codes Specimen Charges Stain Charges 26593 93891 1 1 5:39 PM CDT DERMATOPATHOLOGY LABORATORY Embedded Images 5:39 PM CDT DERMATOPATHOLOGY LABORATORY Pathology/Cytology TISSUE SPECIMEN FROM SKIN / Unknown 01/31/2025 8:54 AM CDT 02/04/2025 6:38 AM CDT Miscellaneous samples (specimen) TISSUE SPECIMEN FROM SKIN / Unknown 01/31/2025 8:54 AM CDT 02/04/2025 6:38 AM CDT us Jaci Oakley DO LAB - PATHOLOGY/CYTOLOGY ORDERABLES Final Result DERMATOPATHOLOGY LABORATORY [facility] - Department of Dermatology [facility] [address] [place] [address], [address] [phone] documented in this encounter Visit Diagnoses Not on filedocumented in this encounter Care Teams Conversion Man Relationship Specialty Start Date End Date Eusebio Bello MD [address] [place] [phone] PCP - General 03/25/21 documented as of this encounter
--- OUTSIDE RECORDS SUMMARY | 2025-03-05 03:22 | XMS_ITS | Clinical Summary ---
Author Organization [facility] Address [address] [place] [address] Phone Care Team Providers Care Manager Product Management Name Role Phone Chao Springer MD Primary Care Provider [phone] Alek Benitez DO Unavailable [phone] Medications metroNIDAZOLE (FLAGYL) 500 MG Tablet Take 1 Tab by mouth 3 times daily. 30 Tab 01/04/2018 Active Immunizations Immunization Administration Dates Next Due Covid-19, Mrna, Lnp-s, PF, 1 00 mcg/0.5 mL Dose (Moderna) 02/09/2021,01/07/2021 Social History Tobacco Use Types Packs/Day Years Used Date Smoking Tobacco: Never Assessed Sex and Gender Information Value Date Recorded Sex Assigned at Not on file Legal Sex Male 10:48 PM CDT Gender Identity Not on file Sexual Orientation Not on file Plan of Treatment Health Maintenance Due Date Last Done Comments Hepatitis C Virus (HCV) Screening 1950 TdaP Immunization 1950 Cologuard 02/18/2000 Immunochemical Fecal Occult Blood 02/18/2000 Pneumococcal Immunization (5 0+ years) (1 of 1 - PCV) 02/18/2000 Zoster Immunization (1 of 2) 02/18/2000 Colonoscopy 12/29/2022 12/29/2017, 03/05/2015 Colorectal Cancer Screening 12/29/2022 Influenza Immunization (#1) 2024 10/24/2018 SARS-COV-2 Immunization ( season) 2024 10/27/2021, 02/09/2021, 01/07/2021 Respiratory Syncytial Virus (RSV) Immunization (Adult) (1 - 1-dose 75+ series) 2025 12/29/2017, 03/05/2015 Hepatitis B Immunization Aged Out No longer eligible based on patient's age to complete this topic Meningococcal Immunization (ACWY) Aged Out No longer eligible b ased on patient's age to complete this topic Rotavirus Immunization Aged Out No lo nger eligible based on patient's age to complete this topic Procedures Procedure Name Priority Date/Time Associated Diagnosis Comments COLONOSCOPY Routine 12/29/2017 from Last 3 Months or Most Recently Relevant to Health Maintenance Results * COLONOSCOPY (12/29/2017) Alek Benitez DO PROCEDURE/MINOR SURGICAL ORDERA BLES Final Result from Last 3 Months or Most Recently Relevant to Health Maintenance Care Teams Manager Product Management Relationship Specialty Start Date End Date Chao Springer MD [address] [facility] [place] [address] PCP - General Family Medicine 01/03/18 Alek Benitez DO [address] [facility] [address] Gastroenterology 01/03/18
--- OUTSIDE RECORDS SUMMARY | 2025-03-05 03:22 | XMS_ITS | Encounter Summary ---
Author Organization [facility] Address [address] [facility] [place] [address] Care Team Providers Care Cane Loader Name Role Phone Eusebio Bello MD Primary Care Provider [phone] Encounter Details Date Type Department Care Team (Late st Contact Info) Description 08/29/[address] 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 - Received: 08/29/2024 10:45 AM DermPath Lab Pathologist: Brandy Rodriguez MD Specimen: Skin, right eyebrow 2:23 PM CDT DERMATOPATHOLOGY LABORATORY Final Diagnosis Specimen A. SKIN, right eyebrow: BASAL CELL CARCINOMA, NODULAR TYPE (C44.319) 2:23 PM CDT DERMATOPATHOLOGY LABORATORY Clinical History BCC 2:23 PM CDT DERMATOPATHOLOGY LABORATORY Gross Description Specimen A: Received is one formalin filled container labeled with the patient's name and designated right eyebrow. The specimen consists of a shave biopsy measuring 8x5x1 mm. Jar 0. 2:23 PM CDT DERMATOPATHOLOGY LABORATORY Microscopic Description Specimen A. SKIN, right eyebrow: Within the dermis there are aggregates of basaloid cells with a high nuclear to cytoplasmic ratio and peripheral palisading. 2:23 PM CDT DERMATOPATHOLOGY LABORATORY Disclaimer An external and internal positive and negative controls are appropriate for the histochemical, immunohistochemical and immunofluorescence stain(s) in this case (if any), except where stated explicitly. The performance characteristics of the stain(s) cited in this report were developed and its performance characteristic determined by the Dermatopathology Laboratory at [facility], directed by Dr. Brody Vargas. These tests need not be, and therefore are not, approved by the [place] Food and Drug Administration. The tests are used for clinical purposes. Billing Codes Specimen Charges Stain Charges [id number] 1 2:23 PM CDT DERMATOPATHOLOGY LABORATORY Embedded Images 2:23 PM CDT DERMATOPATHOLOGY LABORATORY Pathology/Cytolog y TISSUE SPECIMEN FROM SKIN / Unknown 08/28/2024 08/29/2024 10:45 AM CDT us Aurea Ledesma MD LAB - PATHOLOGY/CYTOLOGY SHANAEE OBED Final Result DERMATOPATHOLOGY LABORATORY [facility] - Department of Dermatology [facility] [address] [facility], [address]rd [address] [phone] documented in this encounter Visit Diagnoses Not on filedocumented in this encounter Care Teams Cane Loader Relationship Specialty Start Date End Date Eusebio Bello MD [address] [place] [phone] PCP - General 03/25/21 documented as of this encounter
--- OUTSIDE RECORDS SUMMARY | 2025-03-05 03:22 | XMS_ITS | Clinical Summary ---
Author Organization [facility] Address [address] [place] [address] Care Team Providers Care Administrative Support Technician Name Role Phone Eusebio Bello MD Primary Care Provider [phone] Source Comments [facility],non-owned Affiliates and Associated Physician Practices is amultiple site organization consisting of ambulatory clinics and hospital sitesin [place], [place], [place] and [place]. This disclosure is being madepursuant to the Care Everywhere program and may not contain all information available regarding this patient. Last updated 18.[facility] Allergies No known active allergies Medications * Be aware that medications may not be up to date on this document. Alwaysverify current medications with the patient. traZODone (DESYREL) 150 MG tablet Take 150 mg by mouth at bedtime 0 Active rosuvastatin (CRESTOR) 5 MG tablet Take 5 mg by mouth once daily 1 Active meloxicam (MOBIC) 15 MG tablet TAKE 1 TABLET BY MOUTH ONCE DAILY NEEDED FOR ARTHRITIS 2 Active Active Problems Problem Noted Date Diagnosed Date Actinic skin damage 05/15/2021 Assessment & Plan (05/15/2021 11:50 AM CDT): - Chronic - Extensive lesions associated with sun damage and increased risk of skin cancer - Reviewed concerning signs for development of skin cancer - Counseled on importance of daily sun protection, recommend OTC broad spectrum, SPF >30 - Advised monthly self skin exams Inflamed seborrheic keratosis 05/15/2021 Assessment & Plan (05/15/2021 11:59 AM CDT): - Numerous on back, cryotherapy to thickest x2 - Discussed benign potential - Fully reviewed treatment options with patient including indications, risks, benefits, alternatives to cryotherapy - patient desires treatment - Cryotherapy x 2 lesions on back - Wound care reviewed, post cryotherapy handout given Melanocytic nevus 03/08/2017 History of nonmelanoma skin cancer 11/04/2014 Assessment & Plan (05/15/2021 11:56 AM CDT): - No signs of local recurrence - Encouraged monthly self skin exams - Counseled on importance of daily sun protection (Broad spectrum, SPF >30), - Sun screen hand out provided Actinic keratosis 11/04/2014 Assessment & Plan (05/15/2021 11:56 AM CDT): - Numerous on face, ears >> dorsal hands, forearms, cryotherapy to thickest today x12 - Counseled on diagnosis, etiology, natural disease course- including pre- malignant nature of lesions and association with sun exposure - Cryotherapy performed today (see procedure note) - Wound care reviewed, post-cryo handout given - Patient not interested in PDT, has aversion to sunburns - Patient will consider topical chemotherapy cream in future, needs more time to consider Encounters Date Type Department Care Team Description 01/31/2025 Lab Requisition [facility] - DermPath Lab [address] [facility] [place] [address] Jaci Oakley DO from Last 3 Months Family History Medical History Relation Name Comments Cancer - Skin, Melanoma Neg Hx Cancer - Skin, Non Melanoma Neg Hx Social History Tobacco Use Types Packs/Day Years Used Date Smoking Tobacco: Never Smokeless Tobacco: Never Alcohol Use Standard Drinks/Week Comments Yes 0 (1 standard drink = 0.6 oz pur e alcohol) Sex and Gender Information Value Date Recorded Sex Assigned at Not on file 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 Gender Identity Not on file Sexual Orientation Not on file Plan of Treatment Health Maintenance Due Date Last Done Comments OGRAJ (AGES 45-75) - COL ON CA SCREENING 1950 COLON MONITORING 1950 COLONOSCOPY - COLON CA SCREENING 1950 CT COLONOGRAPHY - COLON CA SCREENING 1950 Colorectal Cancer Screening 1950 FIT - COLON CA SCREENING 1950 FLEX SIG - COLON CA SCREENING 1950 HEPATITIS C SCREENING 02/13/1968 DTAP/TDAP/TD VACCINES (1 - Tdap) 1969 PNEUMOCOCCAL VACCINE 50+ (1 of 1 - PCV) 02/18/2000 ZOSTER VACCINE (1 of 2) 02/18/2000 COVID-19 VACCINE (3 - 2023-2 5 season) 2024 02/09/2021, 01/07/2021 DEPRESSION SCREENING 11/14/2024 MEDICARE AWV CALENDAR YEAR 2024 Respiratory Syncytial Virus (RSV) Vaccine Pt: or over 60 yrs (1 - 1-dose 75+ series) 2025 INFLUENZA VACCINE (Season Ended) 2025 HEPATITIS B VACCINE Aged Out No longe r eligible based on patient's age to complete this topic HIB VACCINE Aged Out No longer eligi ble based on patient's age to complete this topic HPV VACCINE Aged Out No longer eligi ble based on patient's age to complete this topic MENINGOCOCCAL (Group B) VACCINE SHARED DECISION-MAKING Aged Out No longer eligible based on patient's age to complete this topic MENINGOCOCCAL GROUPS A/C/Y/W VACCINE Aged Out No longer eligible b ased on patient's age to complete this topic Procedures Procedure Name Priority Date/Time Associated Diagnosis Comments DERMATOPATHOLOGY Routine 01/31/2025 8:54 AM CDT from Last 3 Months Results * DERMATOPATHOLOGY (01/31/2025 8:54 AM CDT) Case Report Dermatopathology Report Case: [id number] Authorizing Provider: Jaci Oakley DO Collected: 01/31/2025 08:54 AM Ordering Location: [facility] - Received: 02/04/2025 06:38 AM [...] R/O BCC B: R/O NMSC 5:39 PM CDT DERMATOPATHOLOGY LABORATORY Gross Description Specimen [...] cytoplasmic ratio and peripheral palisading. 5:39 PM CDT DERMATOPATHOLOGY LABORATORY Disclaimer An external and internal positive and negative controls are appropriate for the histochemical, immunohistochemical and immunofluorescence stain(s) in this case (if any), except where stated explicitly. The performance characteristics of the stain(s) cited in this report were developed and its performance characteristic determined by the Dermatopathology Laboratory at [facility], directed by Dr. Brody Vargas. These tests need not be, and therefore are not, approved by the [place] Food and Drug Administration. The tests are used for clinical purposes. Billing Codes Specimen Charges Stain Charges 30203 [id number] 1 1 5:39 PM CDT DERMATOPATHOLOGY LABORATORY Embedded Images 5:39 PM CDT DERMATOPATHOLOGY LABORATORY Pathology/Cytology TISSUE SPECIMEN FROM SKIN / Unknown 01/31/2025 8:54 AM CDT 02/04/2025 6:38 AM CDT Miscellaneous samples (specimen) TISSUE SPECIMEN FROM SKIN / Unknown 01/31/2025 8:54 AM CDT 02/04/2025 6:38 AM CDT us Jaci Oakley DO LAB - PATHOLOGY/CYTOLOGY ORDERABLES Final Result DERMATOPATHOLOGY LABORATORY [facility] - Department of Dermatology [facility] Medicine [address] [place] [address], [address] [place] [address], [facility] [phone] from Last 3 Months Insurance AETNA AETNA MEDICARE [facility] Care Teams Administrative Support Technician Relationship Specialty Start Date End Date Eusebio Bello MD [address] [place] [phone] [facility] - General 03/25/21
[2025-03-05 10:43] VITALS: BMI 26.5
[2025-03-05 10:45] VITALS: BP 130/74; PULSE 71; RESP 16; TEMP 36.9; O2SAT 98
--- NOTE | 2025-03-05 10:45 | SUR.PREOP ---
1045- Patient made aware upon arrival that procedure start time will be delayed.
[2025-03-05] MEDS: LACTATED RINGERS 1,000 ML 30 ML IV CONT (11:05)
--- NOTE | 2025-03-05 12:57 | P.PNAN_ITS ---
Anes - Initial Pre Proc Eval Procedure: Operation Date: 03/05/25 12:30 Proposed Procedures p Thermal Radio Frequency Ablation Bilateral L3, L4, L5 Medial Branch/Dorsal Ramus Supplying Bilateral L4-L5, L5-S1 Facets Under Fluoroscopic Guidance and Contrast Control - Sidney Alvarado MD Date/Time: 03/05/25 12:57 Surgeon: Sidney Alvarado MD Pre Op Diagnosis: spinal stenosis lumbar region Patient Data Age: 75 Gender: M Height: 1.83 m Weight: 88.7 kg Last Vital Signs Temp 36.9 C 03/05/25 10:45 Pulse 71 03/05/25 10:45 Resp 16 03/05/25 10:45 BP 130/74 03/05/25 10:45 Pulse Ox 98 03/05/25 10:45 O2 Del Method Room Air 03/05/25 10:45 Allergies Allergy/AdvReac Type Severity Reaction Status Date / Time No Known Allergies Allergy Verified 03/05/25 11:53 Home Medications ?Medication ?Instructions ?Recorded ?Confirmed ?Type fluticasone propionate 50 2 spray intranasal BID #16 grams 11/10/23 02/22/25 Rx mcg/actuation nasal spray,suspension (Flonase Allergy Relief) ALLERGY RELIEF (PRANEETH) 10MG TAB 1 tablet PO DAILY 04/16/24 03/05/25 History levothyroxine 75 mcg tablet 75 mcg PO DAILY #90 tabs 09/03/24 03/05/25 Rx (Synthroid) rosuvastatin 5 mg tablet See Rx Instructions .Route 12/26/24 03/05/25 Rx .COMPLEX #90 tabs trazodone 150 mg tablet See Rx Instructions .Route 02/06/25 03/05/25 Rx .COMPLEX #90 tabs meloxicam 15 mg tablet See Rx Instructions .Route 02/12/25 02/22/25 Rx .COMPLEX #30 tabs Patient hx anesthesia problems: none Family hx anesthesia problems: none Results Review: All pre-operative results and documents have been reviewed as part of the pre- operative evaluation. [facility] Past Medical History Medical History (Updated 03/05/25 @ 13:04 by Vitaliy Poon DO) Hyperlipidemia Lumbar spine pain Right hip pain Adenomatous colon polyp Allergic rhinitis Essential tremor Hypothyroidism SI (sacroiliac) joint dysfunction History of COVID-19 Insomnia Skin cancer Squamous cell carcinoma of left ear Surgical History Surgical History Status post surgical removal of malignant neoplasm of skin H/O arthroscopy of right knee Family History Family History Sibling Carcinoma of colon Mother Family history of Alzheimer's disease Father Family history of lymphoma Social History Social History Smoking status: Never smoker Second hand tobacco smoke exposure: Yes Alcohol intake: current Drinks per week: 4 Alcohol use details: WINE/BEER Substance use: never Substance use type: does not use Do You Feel Safe in your Home?: Yes Lack of Transportation: No Lack of Food: Never True Current Housing: I Have Housing Concerned About Future Housing: No Difficulty Paying Gas/Electric Bills: No Difficulty Paying for Meds: No Currently Unemployed: No Education: Decline to Answer Difficulty w/ Childcare or Family Care: No Living arrangements: with family Additional living arrangements comments: Occupation/Education: retired Gender identity (if verbalized by the patient): Male Spiritual care concerns: No Anes - Eval Final PreProcedure Day of Procedure 03/05/25 12:57 Patient weight: obese Heart: regular rate and rhythm Lungs: clear to auscultation and normal air movement Airway: Mallampati scale class II Neurological: alert and oriented Last oral intake: >/= 8 hours ASA classification: III Emergent: no Anesthetic plan: proceed Anesthesia type and monitoring: monitored anesthesia care and standard monitoring Results Review: All pre-operative results and documents have been reviewed as part of the pre- operative evaluation. Informed Consent: The patient's anesthetic plan and its attendant risks and benefits were discuss ed with the patient/family/POA. Questions were solicited and answers provided to the satisfaction of the patient/family/POA.
--- NOTE | 2025-03-05 13:06 | P.HP_ITS ---
History of Present Illness History of Present Illness Consent: Risks, benefits, and alternatives have been discussed and questions answered. Patient agrees to proceed with procedure. Chief complaint: lumbosacral spondylosis, clbp Narrative: Kris Nguyen is a 75 year old male with chronic, recalcitrant and disabling bilateral lumbosacral back pain secondary to degenerative spondylosis with failure to respond to aggressive conservative measures including PT, oral and topical analgesics, opioid and nonopioid analgesics, rest, time and activity/behavioral modification over the past 1-2 years who presents for thermal RF ablation of the bilateral L3, L4, L5 medial branches/dorsal ramus addressing the bilateral L4-5, L5-S1 facet joints under fluoroscopic guidance. Review of Systems Review of Systems: Patient denies any new infectious, allergic, cardiopulmonary, neurologic or constitutional symptoms or changes in activity tolerance or exercise capacity in cluding new or progressive SOB/[place], peripheral edema, productive cough, dysuria, nausea/vomiting, diarrhea, weight change, fevers/chills/night sweats, new or progressive neurologic deficit, cognitive or mood changes since last seen, except as documented in the HPI. All systems reviewed & are unremarkable except as noted in HPI and below PMFSH Past Medical History Medical History (Updated 03/05/25 @ 13:04 by Vitaliy Poon DO) Hyperlipidemia Lumbar spine pain Right hip pain Adenomatous colon polyp Allergic rhinitis Essential tremor Hypothyroidism SI (sacroiliac) joint dysfunction History of COVID-19 Insomnia Skin cancer Squamous cell carcinoma of left ear Surgical History Surgical History Status post surgical removal of malignant neoplasm of skin H/O arthroscopy of right knee Family History Family History Sibling Carcinoma of colon Mother Family history of Alzheimer's disease Father Family history of lymphoma Social History Social History Smoking status: Never smoker Second hand tobacco smoke exposure: Yes Alcohol intake: current Drinks per week: 4 Alcohol use details: WINE/BEER Substance use: never Substance use type: does not use Do You Feel Safe in your Home?: Yes Lack of Transportation: No Lack of Food: Never True Current Housing: I Have Housing Concerned About Future Housing: No Difficulty Paying Gas/Electric Bills: No Difficulty Paying for Meds: No Currently Unemployed: No Education: Decline to Answer Difficulty w/ Childcare or Family Care: No Living arrangements: with family Additional living arrangements comments: Occupation/Education: retired Gender identity (if verbalized by the patient): Male Spiritual care concerns: No Meds Home Medications and Allergies Home Medications ?Medication ?Instructions ?Recorded ?Confirmed ?Type fluticasone propionate 50 2 spray intranasal BID #16 grams 11/10/23 02/22/25 Rx mcg/actuation nasal spray,suspension (Flonase Allergy Relief) ALLERGY RELIEF (PRANEETH) 10MG TAB 1 tablet PO DAILY 04/16/24 03/05/25 History levothyroxine 75 mcg tablet 75 mcg PO DAILY #90 tabs 09/03/24 03/05/25 Rx (Synthroid) rosuvastatin 5 mg tablet See Rx Instructions .Route 12/26/24 03/05/25 Rx .COMPLEX #90 tabs trazodone 150 mg tablet See Rx Instructions .Route 02/06/25 03/05/25 Rx .COMPLEX #90 tabs meloxicam 15 mg tablet See Rx Instructions .Route 02/12/25 02/22/25 Rx .COMPLEX #30 tabs Allergies Allergy/AdvReac Type Severity Reaction Status Date / Time No Known Allergies Allergy Verified 03/05/25 11:53 Vital Signs Vital Signs - 24 hr 03/05/25 10:45 Temperature 98.4 F Pulse Rate 71 Respiratory Rate 16 Blood Pressure 130/74 Pulse Oximetry 98 Oxygen Delivery Room Air Exam Narrative: The patient's physical exam is essentially unchanged from prior examination on 01/21/25. Specifically, patient demonstrates normal lung capacity, tidal volume and respiratory rate without wheezes, crackles, rales or rubs. Heart rate and rhythm are regular without murmurs, gallops or rubs. No JVD. Pulses 2+ globally without increasing peripheral edema. AAOx3 with no evidence of confusion, intoxication or altered mental state, NC/AT without acute distress or altered consciousness. Speech, cognition, mood, insight and judgment at baseline and within normal limits. Assessment and Plan Assessment and plan (1) Lumbosacral spondylosis: Code(s): M47.817 - Spondylosis without myelopathy or radiculopathy, lumbosacral region Status: Acute (2) Lumbago: Code(s): M54.50 - Low back pain, unspecified Status: Acute (3) Chronic pain: Code(s): G89.29 - Other chronic pain Status: Acute Plan proceed as planned with thermal RF ablation of the bilateral L3, L4, L5 medial branches/dorsal ramus addressing the bilateral L4-5, L5-S1 facet joints under fluoroscopic guidance.
--- NOTE | 2025-03-05 13:09 | WPDHPUPDATE1 ---
History and Physical Update Update Date/Time: 03/05/25 13:09 History and Physical has been reviewed, including an updated exam of the patient. There are NO changes in the patient's condition. Risks, benefits, and alternatives have been discussed and questions answered. Patient agrees to proceed with procedure.
--- NOTE | 2025-03-05 13:10 | P.OP_ITS ---
Procedure Note - Detailed Date of Procedure 03/05/25 Pre-op Diagnosis lumbosacral spondylosis, clbp Post-op Diagnosis Same Procedure Performed Thermal Radiofrequency Ablation of the Bilateral Lumbar Medial Branches/Dorsal Ramus at the L3, L4, L5 Levels Treating the Bilateral L4-5, L5-S1 Facet Joints Under Fluoroscopic Guidance (4 Levels Treated). Surgeon Sidney Alvarado MD Assessment Expert None. Anesthesia Local (w/ MAC) Description of Procedure INFORMED CONSENT: Risks, benefits and alternatives to the procedure were discussed in detail with the patient who expressed explicit understanding and consent to proceed. Patient was informed verbally and in written form regarding the risks associated with the procedure including the low risk of serious infection, bleeding/bruising, allergic reaction, nerve or organ injury, paralysis, procedural site pain or discomfort, worsening pain and/or mobility, failure to treat and/or disfigurement. The patient expressed explicit understanding and consent to proceed. All materials required for the procedure were available prior to procedure start. Site and side were marked prior to procedure and confirmed in the presence of the patient. PROCEDURE IN DETAIL: The patient was brought to the procedural suite and placed in the prone position. Patient was made comfortable with use of pillows under the head/chest, hips and ankles. ASA standard monitors were applied and used throughout the procedure. Skin overlying the injection site on the affected side(s) was prepared broadly with ChloraPrep applicator and draped in a sterile manner. Aseptic technique was used throughout. The endplates of the vertebral bodies at the site(s) of interest were aligned in the AP view. Ipsilateral oblique angulation was utilized to optimize visualization of the intersection between the superior articulating process and transverse process at each target site. Local anesthesia was established by infiltration with approximately 5 mL of 1% lidocaine via a 1-1/2 inch 27-gauge needle divided over each site treated. A 16-gauge 100mm [place] RF needle with curved 10mm active tip was advanced in the AP view until the needle tip contacted the periosteum at the target site, the right L3 medial branch. Lateral view was utilized to adjust and confirm the appropriate placement of the needle tip just anterior to the facet line, superior to the pedicle and posterior to the foramen. Grounding electrode was in place and functioning. The appropriately-sized RF cannula was inserted into the RF needle and motor stimulation was performed with no subjective or objective evidence of recruited muscle activity with stimulation up to 2.0 volts at a frequency of 2Hz. 1.5 mL of 2.0% PF lidocaine was injected after negative aspiration. After a 90s pause, lesioning was performed to 90 degrees centigrade for 90s ensuring lack of symptoms in the extremity throughout. Needle was rotated 180 degrees and lesioning repeated in a similar manner. Patient tolerated this well. No parasthesias were elicited. Needle was removed completely intact without difficulty. The same procedure was repeated for all intended levels/ structures on the ipsilateral side, right L4, L5 medial branch/dorsal ramus with identical methodology, modified to compensate for new location, with similar results and no evidence of complication. The same exact procedure was repeated for all remaining levels on the contralateral side, left L3, L4, L5 medial branches/dorsal ramus, modified as necessary to accommodate for the new target location with identical findings/results and no evidence of complication. Images were saved and documented in the patient chart. Patient's skin was cleansed and sterile bandage applied. The patient tolerated the procedure well. The patient was transported to the recovery area in stable condition where they were observed for an appropriate amount of time prior to discharge, without evidence of complication. The patient was instructed to avoid excessive activity for the next 48 hours, including climbing and frequent use of stairs. Showers only for 48 hours. They were instructed not to drive or operate heavy machinery for 24 hours. They are to monitor for severe headaches, fevers, chills, night sweats, erythema/swelling at the site or any other signs of infection, bleeding/bruising, bowel or bladder changes as well as new pain, weakness or numbness in the upper or lower extremity. Should they notice these changes, they are instructed to call our office immediately or report directly to the nearest Emergency Department if no answer or if after posted office hours. COMPLICATIONS: None COMMENTS: None Complications No immediate complications Condition Stable Disposition PACU [facility] Billing Surgery - Charge Forward: Surgery Billing
[2025-03-05] MEDS: LIDOCAINE 2% PF LOCAL INJ 5 ML VIAL INFILTRATE (14:15)
[2025-03-05] MEDS: BUPivacaine HCL 0.5% 10 ML AMP 5 ML INFILTRATE (14:16)
[2025-03-05 14:35] VITALS: BP 128/66; PULSE 77; RESP 12; O2SAT 93
[2025-03-05 15:05] VITALS: BP 128/66; PULSE 68; RESP 16
== END 2025-03-05 15:18 | disposition home or self-care (01) ==
PROVIDERS: PCP Family Medicine; Visit Provider Anesthesiology Pain Medicine
PROC: (CPT 64635; principal; 2025-03-05 12:30)
DX: M47.817 Spondylosis without myelopathy or radiculopathy, lumbosacral region (principal); G89.29 Other chronic pain
CPT/HCPCS: 64635; 64636 ×6; 99199; J2003; J2250; J2704; J3010; J7120

== ENCOUNTER 2025-07-25 14:15 | Outpatient (CLI) | payer MEDICARE, SELFPAY ==
--- NOTE | ~2025-07-25 | XR_ITS ---
EXAMINATION: XR knee RT 3V, 07/25/2025 14:37 CDT HISTORY: fell 1 year ago pain increasing since in rt knee on medial COMPARISON: No comparisons available. Findings: No acute fracture or malalignment. No significant degenerative changes. Soft tissues unremarkable. Impression: No acute fracture or malalignment. Reviewed, dictated and finalized at location A. Impression: No acute fracture or malalignment.
--- OUTSIDE RECORDS SUMMARY | 2025-07-25 16:02 | XMS_ITS | Clinical Summary ---
Author Organization [facility] Address [address] [place] [address] Phone Care Team Providers Care Equity Holder Name Role Phone Chao Springer MD Primary Care Provider [phone] Alek Benitez DO Unavailable [phone] Medications metroNIDAZOLE (FLAGYL) 500 MG Tablet Take [...] (HCV) Screening 1950 TdaP Immunization 1950 Cologuard 1995 Immunochemical Fecal Occult Blood 1995 Pneumococcal Immunization (5 0+ years) (1 of 1 - PCV) 02/18/2000 Zoster Immunization (1 of 2) 02/18/2000 Colonoscopy 12/29/2022 12/29/2017, 03/05/2015 Colorectal Cancer Screening 12/29/2022 SARS-COV-2 Immunization ( season) 2024 10/27/2021, 02/09/2021, 01/07/2021 Respiratory Syncytial Virus (RSV) Immunization (Adult) (1 - 1-dose 75+ series) 2025 Influenza Immunization (#1) 2025 10/24/2018 Hepatitis B Immunization Aged Out No longer eligible based on patient's age to complete this topic Human Papillomavirus (HPV) Immunization Aged Out No longer eligible b ased [...] Recently Relevant to Health Maintenance Care Teams Equity Holder Relationship Specialty Start Date End Date Chao Springer MD [address] [place] [address] PCP - General Family Medicine 01/03/18 Alek Benitez DO [address] [facility] [place] [address] Gastroenterology 01/03/18
== END 2025-07-25 14:16 | disposition home or self-care (01) ==
PROVIDERS: PCP Family Medicine; Visit Provider Family Medicine
DX: M25.561 Pain in right knee (principal)
CPT/HCPCS: 73562

== ENCOUNTER 2025-10-03 14:07 | Outpatient (CLI) | payer MEDICARE, SELFPAY ==
--- NOTE | ~2025-10-03 | XR_ITS ---
EXAMINATION: XR toe 1st RT min 2V, 10/03/2025 14:17 CERTIFIED ADAPTIVE PHYSICAL EDUCATOR HISTORY: NON TRAUMA PAIN TO 1ST TOE FOR SEVERAL YEARS COMPARISON: No comparisons available. Findings: No acute fracture or malalignment. Severe degenerative changes of the first metatarsal phalangeal joint Soft tissues unremarkable. Impression: No acute fracture or malalignment. Reviewed, dictated and finalized at location P. IFIED ADAPTIVE PHYSICAL EDUCATOR Impression: No acute fracture or malalignment.
--- OUTSIDE RECORDS SUMMARY | 2025-10-03 17:20 | XMS_ITS | Encounter Summary ---
Author Organization [facility] Address [address] [place] [address] Care Team Providers Care Air Chipper Name Role Phone Eusebio Bello MD Primary Care Provider [phone] Encounter Details Date Type Department Care Team (Late st Contact Info) Description 01/31/2025 Lab Requisition [facility] - DermPath Lab [address] [facility] 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 Gender Identity Not on file Sexual Orientation Not on file documented as of this encounter Plan of Treatment Not on file documented as of this encounter Procedures Procedure Name Priority Date/Time Associated Diagnosis Comments DERMATOPATHOLOGY Routine 01/31/2025 8:54 AM CDT documented in this encounter Results * DERMATOPATHOLOGY (01/31/2025 8:54 AM CDT) Case Report Dermatopathology Report Case: [id number] Authorizing Provider: Jaci Oakley DO Collected: 01/31/2025 08:54 AM Ordering Location: [facility] - Received: 02/04/2025 06:38 AM DermPath Lab Pathologist: Sarah Simpson MD Specimens: A) - Skin, right glabella B) - Skin, right ant lower extrem 5:39 PM CDT DERMATOPATHOLOGY LABORATORY Final Diagnosis Specimen A. SKIN, right glabella: BASAL CELL CARCINOMA, NODULAR TYPE (C44.319) Specimen B. SKIN, right ant lower extrem: BASAL CELL CARCINOMA, NODULAR TYPE (C44.712) 5:39 PM CDT DERMATOPATHOLOGY LABORATORY at 1739 CDT Clinical History A: R/O BCC B: R/O [...] measuring 7x5x1 mm. Jar 0. 5:39 PM CDT DERMATOPATHOLOGY LABORATORY Microscopic Description Specimen [...] purposes. Billing Codes Specimen Charges Stain Charges 20365 [id number] 1 1 5:39 PM CDT DERMATOPATHOLOGY LABORATORY Embedded Images 5:39 PM CDT DERMATOPATHOLOGY LABORATORY Pathology/Cytology TISSUE SPECIMEN FROM SKIN / Unknown 01/31/2025 8:54 AM CDT 02/04/2025 6:38 AM CDT Miscellaneous samples (specimen) TISSUE SPECIMEN FROM SKIN / Unknown 01/31/2025 8:54 AM CDT 02/04/2025 6:38 AM CDT us Jaci Oakley DO LAB - PATHOLOGY/CYTOLOGY ORDERABLES Final Result DERMATOPATHOLOGY LABORATORY [facility] - Department of Dermatology [facility] [address] [place] [address], [address] [phone] documented in this encounter Visit Diagnoses Not on filedocumented in this encounter Care Teams Air Chipper Relationship Specialty Start Date End Date Eusebio Bello MD [address] [place] [phone] PCP - General 03/25/21 documented as of this encounter
--- OUTSIDE RECORDS SUMMARY | 2025-10-03 17:20 | XMS_ITS | Clinical Summary ---
Author Organization [email or web address] Address [address] [place] [address] Care Team Providers Care Can Repairer Name Role Phone Eusebio Bello MD Primary Care Provider [phone] Source Comments [email or web address],non-owned Affiliates and Associated Physician Practices is amultiple site organization consisting of ambulatory clinics and hospital sitesin [place], [place], [place] and [place]. This disclosure is being madepursuant to the Care Everywhere program and may not contain all information available regarding this patient. 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 Gender Identity Not on file Sexual Orientation Not on file Plan of Treatment Health Maintenance Due Date Last Done Comments COLOGUARD (AGES 45-75) - COL ON CA SCREENING [...] 02/18/2000 ZOSTER VACCINE (1 of 2) 02/18/2000 DEPRESSION SCREENING 11/14/2024 MEDICARE AWV CALENDAR YEAR 2024 Respiratory Syncytial Virus (RSV) Vaccine Pt: or over 60 yrs (1 - 1-dose 75+ series) 2025 COVID-19 VACCINE (3 - 2024-2 6 season) 2025 02/09/2021, 01/07/2021 INFLUENZA VACCINE (#1) 2025 HEPATITIS B VACCINE Aged Out No [...] on patient's age to complete this topic Insurance AETNA AETNA MEDICARE ADV Care Teams Can Repairer Relationship Specialty Start Date End Date Eusebio Bello MD [address] [place] [phone] PCP - General 03/25/21
--- OUTSIDE RECORDS SUMMARY | 2025-10-03 17:20 | XMS_ITS | Encounter Summary ---
Author Organization [facility] Address [address] [place] [address] Care Team Providers Care Kettle Coordinator Name Role Phone Eusebio Bello MD Primary Care Provider [phone] Encounter Details Date Type Department Care Team (Late st Contact Info) Description 08/29/2024 Lab Requisition [facility] - DermPath Lab [address] [facility] [place] [phone] Aurea Ledesma MD [address] [facility] [address] [place] [address] Social History Tobacco Use Types Packs/Day Years Used Date Smoking Tobacco: Never Smokeless Tobacco: Never Alcohol Use Standard Drinks/Week Comments Yes 0 (1 standard drink = 0.6 oz pur e alcohol) Sex and Gender Information Value Date Recorded Sex Assigned at Not on file 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 Gender Identity Not on file Sexual Orientation Not on file documented as of this encounter Plan of Treatment Not on file documented as of this encounter Procedures Procedure Name Priority Date/Time Associated Diagnosis Comments DERMATOPATHOLOGY Routine 08/28/2024 12:0 0 AM CDT documented in this encounter Results * DERMATOPATHOLOGY (08/28/2024 12:00 AM CDT) Case Report Dermatopathology Report Case: [id number] Authorizing Provider: Aurea Ledesma MD Collected: 08/28/2024 12:00 AM Ordering Location: [facility] - Received: 08/29/2024 10:45 AM DermPath Lab Pathologist: Brandy Rodriguez MD Specimen: Skin, right eyebrow 2:23 PM CDT DERMATOPATHOLOGY LABORATORY Final Diagnosis Specimen A. SKIN, right eyebrow: BASAL CELL CARCINOMA, NODULAR TYPE (C44.319) 2:23 PM CDT DERMATOPATHOLOGY LABORATORY at 1423 CDT Clinical History BCC 2:23 PM CDT DERMATOPATHOLOGY [...] characteristic determined by the Dermatopathology Laboratory at [facility], directed by Dr. Brody Vargas. These tests need not be, and therefore are not, approved by the [place] Food and Drug Administration. The tests are used for clinical purposes. Billing Codes Specimen Charges Stain Charges [id number] 1 2:23 PM CDT DERMATOPATHOLOGY LABORATORY Embedded Images 2:23 PM CDT DERMATOPATHOLOGY LABORATORY Pathology/Cytolog y TISSUE SPECIMEN FROM SKIN / Unknown 08/28/2024 08/29/2024 10:45 AM CDT us Aurea Ledesma MD LAB - PATHOLOGY/CYTOLOGY [place] [facility]ED Final Result DERMATOPATHOLOGY LABORATORY [facility] - Department of Dermatology [employer] [address] [facility]rd Floor [address] [phone] documented in this encounter Visit Diagnoses Not on filedocumented in this encounter Care Teams Kettle Coordinator Relationship Specialty Start Date End Date Eusebio Bello MD [address] [place] [phone] PCP - General 03/25/21 documented as of this encounter
== END 2025-10-03 14:08 | disposition home or self-care (01) ==
PROVIDERS: PCP Family Medicine; Visit Provider Family Medicine
DX: M79.674 Pain in right toe(s) (principal)
CPT/HCPCS: 73660